=== PATIENT | male | born 1965 | race Caucasian/White ===

== ENCOUNTER 2022-06-15 13:10 | Emergency (ER) | payer OTHER ==
[2022-06-15 13:53] LABS: RED BLOOD COUNT 5.35 M/UL (4.20-5.50); WHITE BLOOD COUNT 12.3 K/UL (4.5-11.0)
[2022-06-15 14:42] LABS: BUN/CREATININE RATIO 16 (0-10)
[2022-06-15] MEDS ORDERED: PERCOCET 5/325 T1 EA PO (20:43)
== END 2022-06-15 22:10 | disposition home or self-care (01) ==
LOC: ER1 13:10
PROVIDERS: Emergency Medicine
DX: M48.54XA Collapsed vertebra, not elsewhere classified, thoracic region, initial encounter for fracture (principal); M62.82 Rhabdomyolysis; E11.9 Type 2 diabetes mellitus without complications; I10 Essential (primary) hypertension; Z20.822 Contact with and (suspected) exposure to COVID-19
CPT/HCPCS: 71046; 72129; 72132; 80053; 82550; 82553; 84484; 85025; 85652; 86140; 87040; 93005; 96374; 96375; 99284; J1170; J2270; J2360; Q9967; U0002